=== PATIENT | female | born 1960 | race Caucasian/White ===

== ENCOUNTER 2025-03-22 08:37 | Outpatient (CLI) | payer MEDICARE ==
--- NOTE | 2025-03-22 10:31 | RADIOLOGY REPORT ---
INDICATION: ABNORMAL LEVELS OF OTHER SERUM ENZYMES TECHNIQUE: Multiple real-time sonographic images were obtained of the right upper quadrant. COMPARISON: None FINDINGS: The liver demonstrates increased echotexture without focal mass lesions. The liver measures 15 cm. There is no intrahepatic or extrahepatic ductal dilatation. The common duct measures 4 mm. The gallbladder is without evidence of stone or sludge. The gallbladder wall measures 2 mm and is wi thin normal limits. The right kidney measures 9 cm. The right kidney is normal in contour, size, and shape. The echogeni city is normal. There is no hydronephrosis. The pancreas is not well visualized due to overlying bowel gas. IMPRESSION: No sonographic evidence of gallstones or acute cholecystitis. Hepatic steatosis.
== END 2025-03-22 23:59 | disposition home or self-care (01) ==
LOC: RAD 08:37
PROVIDERS: ATTEND Physician Assistant
DX: K76.0 Fatty (change of) liver, not elsewhere classified (principal); R74.8 Abnormal levels of other serum enzymes
CPT/HCPCS: 76700